=== PATIENT | female | born 1990 | race Caucasian/White ===

== ENCOUNTER 2024-05-22 00:30 | Emergency (ER) | payer MEDICAID ==
[~2024-05-22] VITALS: Ht 172.7 cm; Wt 84.0 kg
[2024-05-22 00:47] VITALS: O2SAT 99
[2024-05-22] MEDS ORDERED: CYCL10TA21 MT (02:54)
[2024-05-22] MEDS ORDERED: NAPR-1176 MT (02:54)
[2024-05-22 03:14] VITALS: BP 125/72; PULSE 83; RESP 18; TEMP 36.94740; O2SAT 99
== END 2024-05-22 03:22 | disposition home or self-care (01) ==
LOC: ER 00:30
DX: M79.601 Pain in right arm (principal)
CPT/HCPCS: 99283